=== PATIENT | male | born 1985 | race Caucasian/White ===

== ENCOUNTER 2016-06-13 12:31 | Emergency (ER) | payer OTHER, BC ==
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
[2016-06-13 13:19] VITALS: BP 150/74
== END 2016-06-13 13:01 | disposition home or self-care (01) ==
LOC: JD.ED 12:31 → SUPCPDRO 12:31 → JD.ED 13:01
DX: S16.1XXA Strain of muscle, fascia and tendon at neck level, initial encounter (principal); S29.019A Strain of muscle and tendon of unspecified wall of thorax, initial encounter; V89.2XXA Person injured in unspecified motor-vehicle accident, traffic, initial encounter
CPT/HCPCS: 99282; 99283